=== PATIENT | female | born 1960 | race Caucasian/White ===

== ENCOUNTER 2024-09-11 00:24 | Emergency (ER) | payer OTHER, SELFPAY ==
--- NOTE | ~2024-09-11 | CT_ITS ---
EXAMINATION: CT HEAD WITHOUT CONTRAST CLINICAL INFORMATION: Head trauma COMPARISON: None available. TECHNIQUE: Contiguous axial imaging was performed from the skull base to vertex without intravenous administration of contrast. This CT examination was performed using dose optimization techniques as appropriate, variously including the following: *Automated exposure control *Adjustment of mA and/or kV according to patient size (this includes techniques or standardized protocols for targeted exams where dose is matched to indication/reason for exam; i.e. extremities or head) *Use of iterative reconstruction technique DLP: 535 mGy-cm FINDINGS: No intracranial hemorrhage, tumors or acute infarcts identified. The ventricles and sulci are normal in size and configuration. No focal parenchymal lesions of the brain or abnormal extra-axial fluid collections identified. Normal appearance of the orbits and globes. No intracranial soft tissue inflammatory changes. No significant opacification of the visualized paranasal sinuses, mastoid air cells and middle ear cavities. CT/CT head/brain wo IV con IMPRESSION: No acute intracranial abnormalities. Electronically signed by: Jared Queen MD 09/11/2024 01:55 AM EDT
--- NOTE | 2024-09-11 00:30 | ED_ITS ---
HPI - Head Injury General Chief complaint: Fall Stated complaint: fell hit head Time Seen by Provider: 09/11/24 00:29 Source: patient Mode of arrival: ambulatory Limitations: no limitations History of Present Illness ED Provider: Dr. 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 Patient with increasing headache, no vomiting. MD Complaint: head injury Onset (ago): minute(s) Related Data Allergies Allergy/AdvReac Type Severity Reaction Status Date / Time meperidine [From Demerol] AdvReac Unknown Verified 09/11/24 00:56 Penicillins AdvReac Unknown Verified 09/11/24 00:56 piperacillin [From Zosyn] AdvReac Unknown Verified 09/11/24 00:56 tazobactam [From Zosyn] AdvReac Unknown Verified 09/11/24 00:56 Review of Systems Review of Systems: Yes all other systems are reviewed and are negative Neurologic: Denies Sensory deficit (Neuro) [facility] Past Medical History Onset Time:: 00:00 Social History Social History Advance Directives: No Advance Directives Information Provided: No Physical Exam Vital Signs: Vital Signs: Last Vital Signs Temp 97.7 F 09/11/24 04:10 Pulse 88 09/11/24 04:10 Resp 16 09/11/24 04:10 BP 121/66 09/11/24 04:10 Pulse Ox 98 09/11/24 04:10 O2 Del Method Room Air 09/11/24 04:10 BMI result Body Mass Index 24.9 Const: General: healthy appearing Nutritional Appearance: average body habitus Orientation/consciousness: oriented to person and patient oriented x3 Limitations: no limitations HEENT: Head: Yes normal to inspection Ears: external ears normal General nose exam: Normal external nose present Mouth: Normal oral and palatal mucosa present and oropharynx normal Throat: Yes posterior oropharynx normal Eyes: General: appearance normal, both eyes and all related structures Neck: Other: supple Neck: Yes normal visual inspection Chest: Chest palpation & inspection: normal inspection of the chest Resp: Auscultation: clear to auscultation bilaterally Cardio: Jugular venous distension: no JVD Rate: regular rate Rhythm: regular rhythm Heart sounds: S1 normal heart sound present and S2 normal heart sound present GI: Inspection: Yes normal to inspection Palpation (GI): Soft to palpation, nontender and No hepatosplenomegaly present Auscultation: normal bowel sounds : General: Yes no CVA tenderness Back/Spine/Pelvis: Back: no CVA tenderness Skin: General skin exam: no rashes or lesions noted Neuro: General: oriented to person and patient oriented x3 Cranial nerves: Yes CN's II-XII intact bilaterally Motor exam (neuro): 5/5 motor strength present throughout Sensory Exam: No Sensory deficit (Neuro) Extrem: General: Yes normal to inspection Psych: Appearance: grossly normal Course Reevaluation(s) Reevaluation #1: Feeling better no bleed on CT Time: 06:16 Medications Administered Discontinued Medications Generic Name Dose Route Start Last Admin Trade Name Gigiq PRN Reason Stop Dose Admin Ibuprofen 800 mg 09/11/24 01:27 09/11/24 01:38 Ibuprofen 800 Mg Tablet PO 09/11/24 01:28 800 mg ONCE ONE Administration Medical Decision Making Differential Diagnosis Differential Diagnoses: The differential diagnosis associated with the presentation includes (subdural, epidural, skull fracture) Independent Interpretation I performed an independent interpretation of an: CT Scan (brain: no bleed or mass effect) Discharge Plan Discharge Clinical Impression: Acute head trauma Patient Disposition: Home, Self-Care Instructions: Head Injury (ED) Additional Instructions: follow up with [facility] Print Language: Kiswahili
[2024-09-11 00:55] VITALS: BMI 24.9
[2024-09-11 01:27] VITALS: BP 153/80; PULSE 73; RESP 18; TEMP 36.6; O2SAT 97
[2024-09-11] MEDS: Ibuprofen 800 MG TABLET PO (01:38)
[2024-09-11 04:10] VITALS: BP 121/66; PULSE 88; RESP 16; TEMP 36.5; O2SAT 98
[2024-09-11 06:37] VITALS: BP 116/73; PULSE 83; RESP 14; TEMP 36.3; O2SAT 98
== END 2024-09-11 06:38 | disposition home or self-care (01) ==
PROVIDERS: Emergency Provider Emergency Medicine
DX: S09.90XA Unspecified injury of head, initial encounter (principal); R51.9 Headache, unspecified; W01.0XXA Fall on same level from slipping, tripping and stumbling without subsequent striking against object, initial encounter; Y93.89 Activity, other specified; Y92.89 Other specified places as the place of occurrence of the external cause; Y99.8 Other external cause status
CPT/HCPCS: 70450; 99284